=== PATIENT | female | born 1935 | race Caucasian/White ===

== ENCOUNTER 2017-08-12 11:25 | Inpatient (IN) ==
--- NOTE | 2017-08-12 12:02 | Emergency Department Note ---
Disposition Clinical Impression: COPD (chronic obstructive pulmonary disease), Hypoxia Disposition: Admitted As Inpatient Condition: Fair General Adult HPI - General Chief complaint: ED Shortness of Breath/Dyspnea Stated complaint: sob Time Seen by Provider: 08/12/17 11:53 Source: patient, family Limitations: no limitations - History of Present Illness Pain Scale: 0 - Related Data Home Medications Medication Instructions Recorded Confirmed ALPRAZolam [Xanax 0.5 MG Tablet] 0.5 mg PO TID 08/12/17 08/12/17 Albuterol Neb [Proventil Neb] 2.5 mg IH Q4HR 08/12/17 08/12/17 Albuterol Sulfate [Ventolin Hfa] 2 puff IH Q4H PRN 08/12/17 08/12/17 Beclomethasone Diprop 80mcg [QVAR 1 puff IH BID 08/12/17 08/12/17 80 mcg] Fluticasone Propionate [Flovent 1 puff IH DAILY 08/12/17 08/12/17 Hfa] HYDROcodone/Acet 5/325 mg [[place] 1 tab PO TID 08/12/17 08/12/17 5-325 mg] Ipratropium Neb [Atrovent Neb] 0.5 mg IH Q6HR 08/12/17 08/12/17 Levothyroxine [Synthroid] 100 mcg PO 0630 08/12/17 08/12/17 Omeprazole [PriLOSEC] 40 mg PO DAILY 08/12/17 08/12/17 Allergies Allergy/AdvReac Type Severity Reaction Status Date / Time Penicillins [PCN] Allergy Rash Verified 08/12/17 14:13 Sulfa (Sulfonamide Allergy Rash Verified 08/12/17 14:13 Antibiotics) CT Dye Allergy Rash Uncoded 08/12/17 14:13 Past Medical History - Past Medical History Medical history: Reports: COPD, other Surgical history: Reports: other (right upper lung lobe removal 2001) Psychiatric history: Reports: anxiety 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 history: Reports: non-contributory - Social History Smoking Status: Never smoker Smokeless Tobacco Status: No Alcohol use: Reports: occasionally Drug use: Reports: none Physical Exam - General Limitations: no limitations General appearance: alert, in no apparent distress Course Vital Signs Temperature 98.2 F 08/12/17 11:26 Pulse Rate 88 08/12/17 11:26 Respiratory Rate 20 06/04/18 11:26 Blood Pressure 159/95 08/12/17 11:26 O2 Sat by Pulse Oximetry 83 08/12/17 11:26 Temperature 98.4 F 08/12/17 19:45 Pulse Rate 81 08/12/17 19:45 Respiratory Rate 17 08/12/17 20:14 Blood Pressure 127/75 08/12/17 19:45 O2 Sat by Pulse Oximetry 91 08/12/17 20:14 Oxygen Delivery Oxygen Delivery Nasal Cannula Medical Decision Making - Lab Data Result diagrams: 08/12/17 11:29 Lab Results 08/12/17 08/12/17 08/12/17 Range/Units 11:29 11:29 12:11 D-Dimer (0-500) ng/mLFEU Sodium 137 (136-145) mEq/L Potassium 3.7 (3.5-5.1) mEq/L Chloride 98 (98-107) mEq/L Carbon Dioxide 30 H (23-29) mEq/L BUN 13 (8-23) mg/dL Creatinine 0.79 (0.60-1.20) mg/dL Est GFR ( Amer) > 60 (> 60) Est GFR (Non-Af Amer) > 60 (> 60) BUN/Creatinine Ratio 16 (6-26) Glucose 114 H (70-105) mg/dL Calculated Osmolality 285 (280-300) Calcium 9.6 (8.6-10.3) mg/dL Troponin I < 0.03 (< 0.04) ng/mL B-Natriuretic Peptide 46 (Less than 100) pg/mL Specimen Rejected Clotted 08/12/17 Range/Units 12:18 D-Dimer 697 H (0-500) ng/mLFEU Sodium (136-145) mEq/L Potassium (3.5-5.1) mEq/L Chloride (98-107) mEq/L Carbon Dioxide (23-29) mEq/L BUN (8-23) mg/dL Creatinine (0.60-1.20) mg/dL Est GFR ( Amer) (> 60) Est GFR (Non-Af Amer) (> 60) BUN/Creatinine Ratio (6-26) Glucose (70-105) mg/dL Calculated Osmolality (280-300) Calcium (8.6-10.3) mg/dL Troponin I (< 0.04) ng/mL B-Natriuretic Peptide (Less than 100) pg/mL Specimen Rejected Attestation Statement - Attestation Attestation: I examined this patient and my medical decision-making was reviewed with the Resident Physician. I agree with the documented findings, disposition and treatment plan as described except to the extent set forth below. [id number] time provided Patient with a known history of COPD presents with dyspnea. She appears in no acute distress on exam. She was hypoxic at triage which improved with supplemental oxygen application. The patient was evaluated in conjunction with the resident physician Dr. Wilson
[2017-08-12] MEDS ORDERED: Ipratropium/Albuterol Neb 3 ML IH ONE (12:15)
--- NOTE | 2017-08-12 12:18 | Emergency Department Note ---
Disposition Clinical Impression: Hypoxia COPD (chronic obstructive pulmonary disease) Qualifiers: COPD type: COPD with acute exacerbation Qualified Code(s): J44.1 - Chronic obstructive pulmonary disease with (acute) exacerbation Disposition: Admitted As Inpatient Condition: Fair Referrals: Phil Shelton MD [Primary Care Provider] - Forms: ED Satisfaction Letter Time of Disposition: 14:50 General Adult HPI - General Chief complaint: ED Shortness of Breath/Dyspnea Stated complaint: sob Time Seen by Provider: 08/12/17 11:53 Source: patient, family Mode of arrival: ambulatory Limitations: no limitations Nursing Notes Reviewed: Yes Vital Signs Reviewed: Yes - History of Present Illness HPI Narrative: Patient is an 82-year-old female with a past medical history of lung cancer requiring a right upper lobectomy, COPD requiring 2 L of nasal cannula oxygen at night presenting to the emergency department for the evaluation of exertional dyspnea. The patient states that her symptoms started over the course of the past 3 days. States they appear to be worsening to the point where she has difficulty walking from her house to the car. She states that her pulse ox is also been in the 80s which is not normal for her. The patient states that she was seen at an urgent care 2 days ago and had a chest x-ray and was diagnosed with COPD exacerbation and started on Levaquin and breathing treatments. Patient states that since that time that she does not feel that she is improving. She denies any fevers, productive cough, chest pain, back pain, abdominal pain, nausea, vomiting, or lower extremity swelling. Pain Scale: 0 - Related Data Home Medications Medication Instructions Recorded Confirmed ALPRAZolam [Xanax 0.5 MG Tablet] 0.5 mg PO TID 08/12/17 08/12/17 Albuterol Neb [Proventil Neb] 2.5 mg IH Q4HR 08/12/17 08/12/17 Albuterol Sulfate [Ventolin Hfa] 2 puff IH Q4H PRN 08/12/17 08/12/17 Beclomethasone Diprop 80mcg [QVAR 1 puff IH BID 08/12/17 08/12/17 80 mcg] Fluticasone Propionate [Flovent 1 puff IH DAILY 08/12/17 08/12/17 Hfa] HYDROcodone/Acet 5/325 mg [[place] 1 tab PO TID 08/12/17 08/12/17 5-325 mg] Ipratropium Neb [Atrovent Neb] 0.5 mg IH Q6HR 08/12/17 08/12/17 Levothyroxine [Synthroid] 100 mcg PO 0630 08/12/17 08/12/17 Omeprazole [PriLOSEC] 40 mg PO DAILY 08/12/17 08/12/17 Allergies Allergy/AdvReac Type Severity Reaction Status Date / Time Penicillins [PCN] Allergy Rash Verified 08/12/17 14:13 Sulfa (Sulfonamide Allergy Rash Verified 08/12/17 14:13 Antibiotics) CT Dye Allergy Rash Uncoded 08/12/17 14:13 All systems ED: reviewed and negative except as stated. Review of Systems: As Per HPI Constitutional: Denies: fever, chills Eyes: Denies: eye discharge ENT ED: Reports: congestion Cardiovascular: Reports: dyspnea on exertion. Denies: chest pain, palpitations , orthopnea, edema, syncope Respiratory: Reports: cough, dyspnea, wheezes, sputum production. Denies: hemoptysis Gastrointestinal: Denies: abdominal pain, nausea, vomiting, diarrhea, constipation Musculoskeletal: Denies: back pain Past Medical History - Past Medical History Attestation: Yes The following information was validated with the patient. Medical history: Reports: COPD, other Surgical history: Reports: other (right upper lung lobe removal 2001) Psychiatric history: Reports: anxiety DIRECTOR OF CATH LAB history: Reports: non-contributory - Social History Smoking Status: Never smoker Smokeless Tobacco Status: No Alcohol use: Reports: occasionally Drug use: Reports: none Physical Exam Vital Signs: Patient's vital signs are within normal limits except her oxygen saturation which was in the low 80 on arrival she was placed on 2 L nasal cannula and this improved to 96%. CONSTITUTIONAL: Alert and oriented X3, well-nourished, well appearing, in no apparent distress. Sitting up in bed and speaks in full sentences. HEAD: Normocephalic; atraumatic. EYES: PERRL, no scleral icterus. NOSE: The nose is normal in appearance without rhinorrhea RESP: Normal chest excursion with respiration; patient has good air movement, however she does have mild inspiratory and expiratory wheezing bilaterally. No focal rales. CARD: Regular rhythm, without murmurs, rub or gallop ABD: Non-distended; non-tender, soft,without rigidity, rebound or guarding SKIN: Normal for age and race; warm and dry; no apparent lesions EXT: No lower extremity swelling bilaterally. 2+ pulses in all extremities. No calf tenderness. - General Limitations: no limitations General appearance: alert, in no apparent distress Course Course Narrative: Patient is an 82-year-old female presenting for the main complaint of exertional dyspnea. Her physical exam was remarkable for hypoxia requiring nasal cannula oxygen as well as inspiratory and expiratory wheezing bilaterally. The plan at this time is to treat the patient with 1 order of dual nebs. She is already receiving steroids by mouth outpatient and Levaquin. The patient we worked up for cause of her exertional dyspnea differential diagnosis including but not limited to PE, [place], CHF, or pneumonia. 13:37: Patient states she does not notice much improvement after breathing treatment. I discussed with her that at this time her chest x-ray is negative for pneumonia. Her EKG is normal and troponin is negative. We are waiting on her CBC to return. Plan at this time is to admit the patient for hypoxia. Patient states that she has not had any cardiac testing done in the last 2-3 years. States she has never had an echocardiogram done. 14:49: Discussed plan to admit the patient for hypoxia most likely secondary to COPD. Discussed with Dr. Saul. Agrees to accept patient. Vital Signs Temperature 98.2 F 08/12/17 11:26 Pulse Rate 88 08/12/17 11:26 Respiratory Rate 20 08/12/17 11:26 Blood Pressure 159/95 08/12/17 11:26 O2 Sat by Pulse Oximetry 83 08/12/17 11:26 Temperature 98.2 F 08/12/17 11:26 Pulse Rate 76 08/12/17 12:47 Respiratory Rate 22 08/12/17 12:47 Blood Pressure 138/81 08/12/17 12:47 O2 Sat by Pulse Oximetry 94 08/12/17 12:47 Oxygen Delivery Oxygen Delivery Nasal Cannula Medical Decision Making - Medical Records Medical records reviewed: Yes I reviewed the patient's medical records. - Lab Data Lab results reviewed: Yes I reviewed the patient's lab results. Result diagrams: 08/12/17 11:29 Lab Results 08/12/17 08/12/17 08/12/17 Range/Units 11:29 11:29 12:11 D-Dimer (0-500) ng/mLFEU Sodium 137 (136-145) mEq/L Potassium 3.7 (3.5-5.1) mEq/L Chloride 98 (98-107) mEq/L Carbon Dioxide 30 H (23-29) mEq/L BUN 13 (8-23) mg/dL Creatinine 0.79 (0.60-1.20) mg/dL Est GFR ( Amer) > 60 (> 60) Est GFR (Non-Af Amer) > 60 (> 60) BUN/Creatinine Ratio 16 (6-26) Glucose 114 H (70-105) mg/dL Calculated Osmolality 285 (280-300) Calcium 9.6 (8.6-10.3) mg/dL Troponin I < 0.03 (< 0.04) ng/mL B-Natriuretic Peptide 46 (Less than 100) pg/mL Specimen Rejected Clotted 08/12/17 Range/Units 12:18 D-Dimer 697 H (0-500) ng/mLFEU Sodium (136-145) mEq/L Potassium (3.5-5.1) mEq/L Chloride (98-107) mEq/L Carbon Dioxide (23-29) mEq/L BUN (8-23) mg/dL Creatinine (0.60-1.20) mg/dL Est GFR ( Amer) (> 60) Est GFR (Non-Af Amer) (> 60) BUN/Creatinine Ratio (6-26) Glucose (70-105) mg/dL Calculated Osmolality (280-300) Calcium (8.6-10.3) mg/dL Troponin I (< 0.04) ng/mL B-Natriuretic Peptide (Less than 100) pg/mL Specimen Rejected - Radiology Data Radiology results reviewed: Yes I reviewed the patient's radiology results. Chest X-Ray 08/12/17 12:15 IMPRESSION: 1. No acute cardiopulmonary disease. D/ / 08/12/2017 12:51:02 Mindy Ward MD / miguel Interpreting Provider: Mindy Ward MD - EKG Data EKG #1 EKG attestation: Yes I reviewed and interpreted this EKG. EKG results narrative: Patient's EKG done 11:47 shows almost sinus rhythm at a rate of 75 bpm. Normal access. Normal intervals. No signs of ST elevation, ST depression or new Q waves. This is an unchanged EKG when compared to the EKG done on 09/04/2016.
[2017-08-12 13:07] LABS: BUN/Creatinine Ratio 16 (6-26); Blood Urea Nitrogen 13 mg/dL (8-23); Calcium 9.6 mg/dL (8.6-10.3); Carbon Dioxide 30 mEq/L (23-29); Chloride 98 mEq/L (98-107); Glucose 114 mg/dL (70-105); Osmolality,Calculated 285 (280-300); Potassium 3.7 mEq/L (3.5-5.1); Sodium 137 mEq/L (136-145); Troponin I < 0.03 ng/mL (< 0.04); eGFR For African Americans > 60 (> 60); eGFR For Non-African Americans > 60 (> 60)
[2017-08-12] MEDS ORDERED: *HR* HYDROcodone/Acet 5/325 mg TABLET PO PRN (16:03)
[2017-08-12] MEDS ORDERED: Naloxone 0.4 MG/ML INJ IVP PRN (16:03)
[2017-08-12] MEDS ORDERED: Ipratropium/Albuterol Neb 3 ML IH PRN (16:05)
--- NOTE | 2017-08-12 16:07 | Internal Med History&Physical ---
Date of Encounter: 08/12/17 Time of Encounter: 16:02 Internal Medicine - H&P: HPI Chief complaint: Shortness of breath History of present illness: Ms. Diaz is a 82 year old female history of lung cancer status post right upper lobectomy, COPD on 2 L nocturnal oxygen presents with acute COPD exacerbation. Patient has been experiencing one-week history of progressive shortness of breath worse on exertion, improved with rest. Shortness of breath has progressed to the extent that she is unable to walk a few steps up the stairs. She has developed a rattling productive cough. Cough is productive of yellow sputum. She has been coughing so much that her ribs bilaterally have been hurting. She has a history of smoking but quit in 2001. She was recently seen in urgent care and was prescribed by mouth prednisone and antibiotics which she has not complete. EKG personally reviewed with rate 75, normal sinus rhythm FINDINGS: Frontal and lateral view of the chest demonstrates no lines or tubes. Stable cardiomediastinal silhouette. Evidence of volume loss of the right hemithorax is identified. Opacification of the right apex is seen. Chronic reticular opacities are not significantly changed from the prior study. No new dense consolidation or pleural effusion. Emphysema. No acute osseous abnormality. XR/XR chest 2V IMPRESSION: 1. No acute cardiopulmonary disease. Past Med Surg Social Fam HX - Past Medical History Medical history: COPD, other Additional medical history: History of Lung cancer Psychiatric history: anxiety - Past Surgical History Surgical History: other (right upper lung lobe removal 2001) Additional surgical history: lung cancer - Social History Smoking Status: Never smoker Smokeless Tobacco Status: No Alcohol use: occasionally Drug use: none Internal Medicine - H&P: Meds ALPRAZolam [Xanax 0.5 MG Tablet] 0.5 mg PO TID 08/12/17 [History] Albuterol Neb [Proventil Neb] 2.5 mg IH Q4HR 08/12/17 [History] Albuterol Sulfate [Ventolin Hfa] 2 puff IH Q4H PRN 08/12/17 [History] Beclomethasone Diprop 80mcg [QVAR 80 mcg] 1 puff IH BID 08/12/17 [History] Fluticasone Propionate [Flovent Hfa] 1 puff IH DAILY 08/12/17 [History] HYDROcodone/Acet 5/325 mg [[place] 5-325 mg] 1 tab PO TID 08/12/17 [History] Ipratropium Neb [Atrovent Neb] 0.5 mg IH Q6HR 08/12/17 [History] Levothyroxine [Synthroid] 100 mcg PO 0630 08/12/17 [History] Omeprazole [PriLOSEC] 40 mg PO DAILY 08/12/17 [History] 3 Allergy/AdvReac Type Severity Reaction Status Date / Time Penicillins [PCN] Allergy Rash Verified 08/12/17 14:13 Sulfa (Sulfonamide Allergy Rash Verified 08/12/17 14:13 Antibiotics) CT Dye Allergy Rash Uncoded 08/12/17 14:13 All Systems PM: A 10-system review of systems was performed and is negative for pertinent findings except as documented above in the HPI. Review of systems: General - AAO x 3 Psych - Appropriate affect/speech. No agitation Eyes - SHU. Eye lids intact. No scleral icterus Neuro - No gross peripheral or central neuro deficits on inspection Heart - Sinus. RRR. S1 and S2 present. No added HS/murmurs appreciated. No elevated JVD appreciated. Lung - Adequate air entry b/l, diffuse wheezes and rhonchi is appreciated GI - Soft, non-tender. No hepatosplenomegaly/ascites. BS+ - No CVA/suprapubic tenderness or palpable bladder distension Skin - Intact. No rash/petechiae/ecchymosis. Warm extremities - Constitutional Vitals: Temp Pulse Resp BP Pulse Ox 98.4 F 73 16 163/91 89 08/12/17 15:58 08/12/17 15:58 08/12/17 15:58 08/12/17 15:58 08/12/17 15:58 Internal Med - H&P Results - Labs CBC & Chem 7: 08/12/17 11:29 - Assessment and plan (1) Acute exacerbation of chronic obstructive pulmonary disease (COPD) Current Visit: No Status: Acute Assessment and plan: IV levaquin, duoneb, IV steroids (2) Hypothyroid Current Visit: Yes Status: Acute Assessment and plan: continue med Qualifiers: Hypothyroidism type: acquired Qualified Code(s): E03.9 - Hypothyroidism, unspecified (3) Lung cancer Current Visit: Yes Status: Acute Assessment and plan: in remission. Follow up outpatient surveillance Qualifiers: Laterality: right Lung location: upper lobe of lung Qualified Code(s): C34.11 - Malignant neoplasm of upper lobe, right bronchus or lung - Time Spent With Patient Total time spent is greater than 50% in coordination of care (as documented) at patient's floor/unit and/or counseling patient:
--- NOTE | 2017-08-12 17:06 | Electrocardiograph Report ---
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
[2017-08-12] MEDS: Levofloxacin 500 MG/100 ML 500 MG/100 ML BAG IVPB SCH (18:36)
[2017-08-12] MEDS: MethylPREDNISolone 40 MG/ML VIAL IVP SCH (18:36)
[2017-08-12] MEDS: Ipratropium/Albuterol Neb 3 ML IH SCH ×2 (18:54→23:26)
[2017-08-12] MEDS: ALPRAZolam 0.5 MG TABLET PO SCH (19:49)
[2017-08-13] MEDS: Ipratropium/Albuterol Neb 3 ML IH SCH ×4 (03:41→22:32)
[2017-08-13] MEDS: *HR* Enoxaparin 30 MG/0.3 ML SYRINGE SQ SCH (05:47)
[2017-08-13] MEDS: MethylPREDNISolone 40 MG/ML VIAL IVP SCH ×4 (05:47→17:49)
[2017-08-13 08:46] LABS: BUN/Creatinine Ratio 15 (6-26); Blood Urea Nitrogen 10 mg/dL (8-23); Calcium 9.7 mg/dL (8.6-10.3); Carbon Dioxide 29 mEq/L (23-29); Chloride 99 mEq/L (98-107); Glucose 146 mg/dL (70-105); Osmolality,Calculated 290 (280-300); Potassium 3.7 mEq/L (3.5-5.1); Sodium 139 mEq/L (136-145); eGFR For African Americans > 60 (> 60); eGFR For Non-African Americans > 60 (> 60)
[2017-08-13] MEDS: Levofloxacin 500 MG/100 ML 500 MG/100 ML BAG IVPB SCH (09:07)
[2017-08-13] MEDS: ALPRAZolam 0.5 MG TABLET PO SCH ×2 (09:07→16:03)
--- NOTE | 2017-08-13 19:11 | Internal Med Progress Note ---
Date of Encounter: 08/13/17 Time of Encounter: 10:00 - Assessment and plan (1) Acute exacerbation of chronic obstructive pulmonary disease (COPD) Current Visit: Yes Status: Acute Assessment and plan: Acute exacerbation. Patient with increased demand for oxygen in the last 3 days. She reports nonproductive hacking cough. She states that despite guaifenesin, she is still not bringing anything up with her cough. Continue O2 as needed to maintain sats greater than 92%. Continue guaifenesin, duo nebs, Levaquin, Solu-Medrol 40 mg IV BID. Chest X-Ray 08/12/17 12:15 IMPRESSION: 1. No acute cardiopulmonary disease. D/ / 08/12/2017 12:51:02 Mindy Ward MD / miguel Interpreting Provider: Mindy Ward MD (2) Hypothyroid Current Visit: Yes Status: Acute Assessment and plan: Chronic. Continue home medications. Qualifiers: Hypothyroidism type: acquired Qualified Code(s): E03.9 - Hypothyroidism, unspecified (3) Lung cancer Current Visit: Yes Status: Acute Assessment and plan: In remission since 2001. Patient to follow oncology. Qualifiers: Laterality: right Lung location: upper lobe of lung Qualified Code(s): C34.11 - Malignant neoplasm of upper lobe, right bronchus or lung (4) Elevated d-dimer Current Visit: Yes Status: Acute Assessment and plan: Elevated d-dimer on admission. Patient is allergic to CT dye. VQ scan ordered and pending. See plan above. (5) Acute and chronic respiratory failure Current Visit: Yes Status: Acute Assessment and plan: Patient normally wears 2 L of oxygen at nighttime. Over the last several days she has required oxygen throughout the day. Increased demand for the last 3 days. Plan as above. Qualifiers: Respiratory failure complication: unspecified whether with hypoxia or hypercapnia Qualified Code(s): J96.20 - Acute and chronic respiratory failure , unspecified whether with hypoxia or hypercapnia - Time Spent With Patient Total time spent is greater than 50% in coordination of care (as documented) at patient's floor/unit and/or counseling patient: less than 15 minutes - Subjective Interval history: Patient was seen and evaluated at 10 AM. She reports increasing shortness of breath as well as increased demand for oxygen over the last 3 days. Normally wears 2 L at home at night. She reports that she was wearing a more frequently throughout the day. She now reports a hacking, nonproductive cough. Patient states that she normally takes Xanax 0.5 mg 2 tablets at bedtime and states that she did not sleep well last night, will put in order to not disturb patient from [id number]. Patient does at times appear to have some conversational dyspnea,, no chest pain no abdominal pain, no nausea or vomiting. Patient denies peripheral edema headache or dizziness. - Constitutional Vitals: Temp Pulse Resp BP Pulse Ox 97.9 F 83 16 137/79 89 08/13/17 14:59 08/13/17 14:59 08/13/17 15:44 08/13/17 14:59 08/13/17 15:44 General appearance: Present: cooperative, mild distress, pleasant, answers questions appropriately - Head Head exam: Present: atraumatic, normal inspection, normocephalic - Eye Eye exam: Present: normal appearance, conjuntiva pink, sclera anicteric - Neck Neck exam general surgery: Present: supple, trachea midline. Absent: lymphadenopathy - Respiratory Respiratory exam: Present: decreased breath sounds, CTAB. Absent: accessory muscle use, chest wall tenderness, rales, rhonchi, wheezes - Cardiovascular Cardiovascular exam: Present: RRR, +S1, +S2. Absent: diastolic murmur, gallop, rubs, systolic murmur - GI/Abdominal GI/Abdominal exam: Present: normal bowel sounds, soft. Absent: distended, hepatomegaly, tenderness - Extremities Exam Extremities exam: Present: normal inspection, warm, radial pulses palpable and symmetrical. Absent: calf tenderness, cyanotic, pedal edema, tenderness - Neurological Exam Neurological exam: Present: alert, oriented X3, no focal deficits. Absent: facial droop, speech deficit - Skin Skin exam: Present: dry, intact, normal color, warm. Absent: rash Internal Medicine: Result - Labs CBC & Chem 7: 08/13/17 07:12 Labs: BMP 08/13/17 07:12 Sodium 139 Potassium 3.7 Chloride 99 Carbon Dioxide 29 BUN 10 Creatinine 0.68 Glucose 146 H Calcium 9.7 - ABG Interpretation ABG results: PT/INR, D-dimer D-Dimer 697 ng/mLFEU (0-500) H 08/12/17 12:18 Consult Discharge Plan - Plan Referrals: Phil Shelton MD [Primary Care Provider] -
[2017-08-13] MEDS ORDERED: ALPRAZolam 1 MG TABLET PO SCH (21:00)
[2017-08-13] MEDS ORDERED: Melatonin 3 MG TABLET PO ONE (23:42)
[2017-08-14 04:08] LABS: Basophils % 0.2 %; Hematocrit 39.7 % (35.3-44.9); Hemoglobin 13.1 g/dL (11.5-15.4); Immature Granulocytes % 0.4 % (0-4); Lymphocytes # 1.4 K/mcL (0.6-4.6); Lymphocytes % 13.1 %; Mean Corpuscular Hemoglobin 31.3 pg (28.0-33.3); Mean Corpuscular Volume 94.7 fL (83.0-100.0); Mean Platelet Volume 12.1 fL (9.4-12.4); Monocytes # 0.9 K/mcL (0.0-1.3); Monocytes % 7.9 %; Platelet Count 178 K/mcL (140-400); Red Blood Count 4.19 M/mcL (3.82-4.97); Red Cell Distribution Width 13.6 % (11.5-14.5); Segmented Neutrophils % 78.4 %
[2017-08-14] MEDS: Ipratropium/Albuterol Neb 3 ML IH SCH ×3 (04:10→16:09)
[2017-08-14 04:13] LABS: Neutrophils # 8.6 K/mcL (1.6-8.9)
[2017-08-14 04:19] LABS: BUN/Creatinine Ratio 21 (6-26); Blood Urea Nitrogen 13 mg/dL (8-23); Calcium 9.2 mg/dL (8.6-10.3); Carbon Dioxide 31 mEq/L (23-29); Chloride 100 mEq/L (98-107); Glucose 170 mg/dL (70-105); Osmolality,Calculated 288 (280-300); Potassium 3.8 mEq/L (3.5-5.1); Sodium 137 mEq/L (136-145); eGFR For African Americans > 60 (> 60); eGFR For Non-African Americans > 60 (> 60)
[2017-08-14 04:40] LABS: Platelet Estimate Normal (Normal); Reactive Lymphocytes Present (Not Present)
[2017-08-14] MEDS: *HR* Enoxaparin 30 MG/0.3 ML SYRINGE SQ SCH (06:05)
[2017-08-14] MEDS: MethylPREDNISolone 40 MG/ML VIAL IVP SCH ×2 (06:05→18:37)
[2017-08-14] MEDS ORDERED: ALPRAZolam 0.5 MG TABLET PO SCH (09:00)
[2017-08-14] MEDS: Levofloxacin 500 MG/100 ML 500 MG/100 ML BAG IVPB SCH (09:11)
[2017-08-14 16:10] VITALS: BP 163/89
--- NOTE | 2017-08-14 16:49 | Discharge Summary ---
- NOTES TO OUTPATIENT PROVIDER Notes to Outpatient Provider: She was admitted and treated for acute exacerbation of COPD. Patient had elevated d-dimer, VQ scan showed low probability for PE. Patient has returned to baseline. She will be treated with Levaquin by mouth as well as prednisone taper, Mucinex. Date of Encounter: 08/14/17 Time of Encounter: 14:20 - Discharge Diagnosis (1) Acute exacerbation of chronic obstructive pulmonary disease (COPD) Priority: Primary Status: Acute Assessment and Plan: Acute exacerbation. Patient is improving and states that she is feeling better and ready to go home. She has returned to her baseline O2 use. Today she reports productive cough. Sputum culture is ordered and pending. Continue O2 as needed to maintain sats greater than 92%. Continue guaifenesin, duo nebs, Levaquin, prednisone taper. Chest X-Ray 08/12/17 12:15 IMPRESSION: 1. No acute cardiopulmonary disease. D/ / 08/12/2017 12:51:02 Mindy Ward MD / miguel Interpreting Provider: Mindy Ward MD (2) Hypothyroid Priority: Secondary Status: Acute Assessment and Plan: Chronic. Levothyroxine 100 g daily. Qualifiers: Hypothyroidism type: acquired Qualified Code(s): E03.9 - Hypothyroidism, unspecified (3) Lung cancer Priority: Secondary Status: Chronic Assessment and Plan: In remission since 2001. Continue to follow with oncology. Qualifiers: Laterality: right Lung location: upper lobe of lung Qualified Code(s): C34.11 - Malignant neoplasm of upper lobe, right bronchus or lung (4) Elevated d-dimer Priority: Secondary Status: Acute Assessment and Plan: Elevated d-dimer on admission. Patient is allergic to CT dye. VQ scan show low probability for PE. (5) Acute and chronic respiratory failure Priority: Secondary Status: Acute Assessment and Plan: Patient normally wears 2 L of oxygen at nighttime. Over the last several days she has required oxygen throughout the day. I Pt has returned to her baseline use. Qualifiers: Respiratory failure complication: unspecified whether with hypoxia or hypercapnia Qualified Code(s): J96.20 - Acute and chronic respiratory failure , unspecified whether with hypoxia or hypercapnia Hospital course: Ms. Diaz is a 82 year old female with past medical history of COPD, lung cancer, chronic respiratory failure. Patient was admitted for acute exacerbation of COPD. She has been treated with duo nebs, oxygen, Lasix, guaifenesin, steroids. Prior to admission, patient was having increased oxygen demand over her baseline. Normally wears 2 L of O2 at home at night only, was needing 3 L throughout the day. Seems unremarkable. Lungs are clear and diminished throughout. Today she reports productive cough, sputum culture was ordered and pending. On admission, patient had elevated d-dimer. She is allergic to CT contrast to VQ scan was completed and showed low probability for PE. Patient has no leukocytosis, afebrile, no tachycardia, she is normotensive. Patient is going to be discharged with prescriptions for guaifenesin, Levaquin by mouth, and a prednisone taper. She is stable and appropriate for discharge. Discharge discussed with: patient - Time Spent with Patient Total time spent providing and/or coordinating discharge services: Less than 30 minutes - Discharge Medications Prescriptions: GuaiFENesin ER [Mucinex] 600 mg PO BID #28 tbbp.12hr Levofloxacin [Levaquin] 500 mg PO DAILY #5 tablet predniSONE [PredniSONE] 10 mg PO DAILY #31 tablet Home Medications: ALPRAZolam [Xanax 0.5 MG Tablet] 0.5 mg PO TID 08/12/17 [History] Albuterol Neb [Proventil Neb] 2.5 mg IH Q4HR 08/12/17 [History] Albuterol Sulfate [Ventolin Hfa] 2 puff IH Q4H PRN 08/12/17 [History] Beclomethasone Diprop 80mcg [QVAR 80 mcg] 1 puff IH BID 08/12/17 [History] Fluticasone Propionate [Flovent Hfa] 1 puff IH DAILY 08/12/17 [History] HYDROcodone/Acet 5/325 mg [[place] 5-325 mg] 1 tab PO TID 08/12/17 [History] Ipratropium Neb [Atrovent Neb] 0.5 mg IH Q6HR 08/12/17 [History] Levothyroxine [Synthroid] 100 mcg PO 0630 08/12/17 [History] Omeprazole [PriLOSEC] 40 mg PO DAILY 08/12/17 [History] GuaiFENesin ER [Mucinex] 600 mg PO BID #28 tbbp.12hr 08/14/17 [Rx] Levofloxacin [Levaquin] 500 mg PO DAILY #5 tablet 08/14/17 [Rx] predniSONE [PredniSONE] 10 mg PO DAILY #31 tablet 08/14/17 [Rx] Allergies/Adverse Reactions: 3 Allergy/AdvReac Type Severity Reaction Status Date / Time Penicillins [PCN] Allergy Rash Verified 08/12/17 14:13 Sulfa (Sulfonamide Allergy Rash Verified 08/12/17 14:13 Antibiotics) CT Dye Allergy Rash Uncoded 08/12/17 14:13 Date of admission: 08/12/17 18:48 Primary care physician: Phil Shelton MD Discharging clinician: Jordyn Marin Anticipated date of discharge: 08/14/17 - Constitutional Vitals: Temp Pulse Resp BP Pulse Ox 98.6 F 64 18 163/89 90 08/14/17 16:09 08/14/17 16:09 08/14/17 16:09 08/14/17 16:09 08/14/17 16:09 General appearance: Present: cooperative, A&O X 3, pleasant, no acute distress, answers questions appropriately - Head Head exam: Present: atraumatic, normal inspection, normocephalic - Eye Eye exam: Present: normal appearance, conjuntiva pink, sclera anicteric - Neck Neck exam general surgery: Present: supple, trachea midline. Absent: lymphadenopathy - Respiratory Respiratory exam: Present: decreased breath sounds, CTAB. Absent: accessory muscle use, chest wall tenderness, rales, respiratory distress, rhonchi, wheezes - Cardiovascular Cardiovascular exam: Present: RRR, +S1, +S2. Absent: diastolic murmur, gallop, rubs, systolic murmur - GI/Abdominal GI/Abdominal exam: Present: normal bowel sounds, soft. Absent: distended, hepatomegaly, tenderness - Extremities Exam Extremities exam: Present: normal capillary refill, normal inspection, warm, radial pulses palpable and symmetrical. Absent: calf tenderness, cyanotic, pedal edema, tenderness - Neurological Exam Neurological exam: Present: alert, oriented X3, no focal deficits. Absent: altered, facial droop, speech deficit - Skin Skin exam: Present: dry, intact, normal color, warm. Absent: rash - Patient Status Disposition: Home, Self-Care Condition: Good Functional capacity at discharge: independent ambulation Overall status at discharge: patient is progressing back to baseline - Discharge Instructions Instructions: Chronic Obstructive Pulmonary Disease (DC) Follow Up With: Phil Shelton MD [Primary Care Provider] - Additional Instructions: Follow-up appointments: If there is not an appointment listed below, please call your physician and schedule a follow-up appointment. If you have congestive heart failure and your symptoms return, make an appointment with your physician. Medication List: Carry an up to date list of medications you are taking at all time. We have given you an updated medication list including any new medications that you have been prescribed. Please provide that list to your primary provider Symptoms: If your condition changes or you experience any of the following symptoms, notify your physician immediately: Unusual or worsening pain, fever, persistent nausea and vomiting, bleeding, increase in swelling (especially in your legs), sudden weight gain, extreme dizziness, chest pain, increased drainage or redness from a wound or incision. Go to the emergency department if you experience a problem with breathing. Weights: If you have a history of swelling or shortness of breath, weigh yourself daily and notify your physician if you have a weight gain of two or more pounds in one day or 5 or more pounds in a week. If you experience any of the warning signs for stroke: Sudden numbness or weakness of the face, arm or leg; especially on one side of the body, sudden confusion, trouble speaking or understanding, sudden trouble seeing in one or both eyes, sudden trouble walking, dizziness, loss of balance or coordination, sudden sever headache with no cause; Call 911 or go to the emergency room. Stroke is a medical emergency. Some risk factors for stroke: Age, cigarette smoking, diabetes, excessive alcohol consumption, family history , high blood pressure, overweight, physical inactivity, prior stroke, heart attack, diagnosis of carotid artery stenosis or other artery disease. If you smoke, STOP: Smoking or tobacco use significantly increases your risk of heart and lung disease. Your chance of disease greatly increases if you continue to smoke. For more information, call the [employer] tobacco quit line for smoking cessation QUIT-NOW ( ) - Diet and Activity Activity: increase activity as tolerated, wear oxygen at night Diet: advance to your usual diet
== END 2017-08-14 19:35 | disposition home or self-care (01) | DRG 190 ==
LOC: EMEROO 11:25 → 3BNU 11:25
PROVIDERS: ADMIT Internal Medicine Hematology & Oncology; ATTEND Internal Medicine Hematology & Oncology

== ENCOUNTER 2018-10-30 09:18 | Observation (INO) ==
[2018-10-30] MEDS ORDERED: cefTRIAXone 1,000 MG in Water for inj. (sterile) 10 ML IVP ONE (09:50)
[2018-10-30] MEDS ORDERED: Azithromycin 500 MG in 0.9 % Sodium Chloride 250 ML IVPB ONE (09:50)
[2018-10-30] MEDS ORDERED: Ipratropium/Albuterol Neb 3 ML IH ONE (09:50)
[2018-10-30] MEDS ORDERED: methylPREDNISolone 125 MG/2 ML VIAL IVP ONE (09:50)
[2018-10-30 10:32] LABS: Basophils # 0.1 K/mcL (0.0-0.2); Basophils % 0.4 %; Eosinophils # 0.4 K/mcL (0.0-0.6); Eosinophils % 3.3 %; Hematocrit 39.3 % (35.3-44.9); Hemoglobin 12.9 g/dL (11.5-15.4); Immature Granulocytes % 0.5 % (0-4); Lymphocytes # 1.5 K/mcL (0.6-4.6); Lymphocytes % 11.8 %; Mean Corpuscular HGB Conc 32.8 g/dL (31.6-35.5); Mean Corpuscular Hemoglobin 32.3 pg (28.0-33.3); Mean Corpuscular Volume 98.3 fL (83.0-100.0); Mean Platelet Volume 11.2 fL (9.4-12.4); Monocytes # 1.8 K/mcL (0.0-1.3); Monocytes % 13.8 %; Neutrophils # 9.2 K/mcL (1.6-8.9); Platelet Count 232 K/mcL (140-400); Segmented Neutrophils % 70.2 %; White Blood Count 13.1 K/mcL (4.3-11.1)
[2018-10-30 10:55] LABS: BUN/Creatinine Ratio 23 (6-26); Blood Urea Nitrogen 15 mg/dL (8-23); Calcium 9.6 mg/dL (8.6-10.3); Carbon Dioxide 33 mEq/L (23-29); Chloride 98 mEq/L (98-107); Glucose 113 mg/dL (70-105); Osmolality,Calculated 290 (280-300); Potassium 3.8 mEq/L (3.5-5.1); Sodium 139 mEq/L (136-145); Troponin I < 0.03 ng/mL (< 0.04); eGFR For African Americans > 60 (> 60); eGFR For Non-African Americans > 60 (> 60)
[2018-10-30] MEDS ORDERED: Ibuprofen 600 MG TABLET PO ONE (10:57)
[2018-10-30] MEDS ORDERED: Isovue-370 500 ML BOTTLE IVP ONE (12:08)
[2018-10-30] MEDS ORDERED: *HR* Rivaroxaban 15 MG TABLET PO STA (14:23)
[2018-10-30] MEDS ORDERED: *HR* HYDROcodone/Acet 5/325 mg TABLET PO PRN ×2 (16:22→18:27)
[2018-10-30] MEDS ORDERED: *HR* Heparin 5,000 UNIT/ML VIAL IVP ONE (16:24)
[2018-10-30] MEDS ORDERED: *HR* Heparin 5,000 UNIT/ML VIAL IVP PRN (16:24)
[2018-10-30] MEDS ORDERED: Heparin 25,000 UNIT/250 ML D5W 25,000 UNIT/250 ML IV.SOLN IVC SCH (16:30)
[2018-10-30 18:08] LABS: INR 1.7; Prothrombin Time 19.3 Seconds (9.4-12.1)
[2018-10-30 18:11] LABS: Activated Partial Thrombo Time 37.6 Seconds (26.0-36.0)
[2018-10-30 18:17] LABS: Heparin anti-factor XA UFH > 2.00 IU/mL (0.30-0.70)
[2018-10-30] MEDS ORDERED: Naloxone 0.4 MG/ML INJ IVP PRN (18:26)
[2018-10-30] MEDS ORDERED: *HR* OxyCODONE Immed Rel 5 MG TABLET PO PRN (18:26)
[2018-10-30] MEDS ORDERED: Acetaminophen 325 MG TABLET PO PRN (18:26)
[2018-10-30] MEDS ORDERED: Ondansetron 4 MG/2 ML VIAL IVP PRN (18:26)
[2018-10-30] MEDS: Ipratropium Neb 0.5 MG NEBULIZER IH SCH ×2 (20:10→23:21)
[2018-10-30] MEDS: Albuterol 2.5 MG/3 ML NEBULIZER IH SCH ×2 (20:10→23:20)
[2018-10-30] MEDS: ALPRAZolam 0.5 MG TABLET PO SCH (22:16)
[2018-10-31] MEDS ORDERED: *HR* Heparin 5,000 UNIT/ML VIAL IVP PRN ×2
[2018-10-31 00:37] LABS: INR 1.3; Prothrombin Time 14.6 Seconds (9.4-12.1)
[2018-10-31 00:40] LABS: Activated Partial Thrombo Time 30.8 Seconds (26.0-36.0)
[2018-10-31] MEDS: Heparin 25,000 UNIT/250 ML D5W 25,000 UNIT/250 ML IV.SOLN IVC SCH ×2 (02:30→20:39)
[2018-10-31] MEDS ORDERED: Heparin 25,000 UNIT/250 ML D5W 25,000 UNIT/250 ML IV.SOLN IVC SCH (02:30)
[2018-10-31 04:22] LABS: Basophils % 0.1 %; Hematocrit 36.4 % (35.3-44.9); Hemoglobin 11.9 g/dL (11.5-15.4); Immature Granulocytes % 0.5 % (0-4); Lymphocytes # 1.3 K/mcL (0.6-4.6); Lymphocytes % 8.7 %; Mean Corpuscular HGB Conc 32.7 g/dL (31.6-35.5); Mean Corpuscular Hemoglobin 32.2 pg (28.0-33.3); Mean Corpuscular Volume 98.6 fL (83.0-100.0); Mean Platelet Volume 11.4 fL (9.4-12.4); Monocytes # 1.3 K/mcL (0.0-1.3); Monocytes % 8.7 %; Neutrophils # 12.3 K/mcL (1.6-8.9); Platelet Count 222 K/mcL (140-400); Red Blood Count 3.69 M/mcL (3.82-4.97); Red Cell Distribution Width 13.6 % (11.5-14.5)
[2018-10-31 04:29] LABS: INR 1.1
[2018-10-31 04:31] LABS: Activated Partial Thrombo Time 36.9 Seconds (26.0-36.0)
[2018-10-31] MEDS: Albuterol 2.5 MG/3 ML NEBULIZER IH SCH ×2 (04:31→07:21)
[2018-10-31] MEDS: Ipratropium Neb 0.5 MG NEBULIZER IH SCH ×2 (04:31→07:21)
[2018-10-31 04:40] LABS: BUN/Creatinine Ratio 21 (6-26); Blood Urea Nitrogen 15 mg/dL (8-23); Calcium 9.4 mg/dL (8.6-10.3); Carbon Dioxide 29 mEq/L (23-29); Chloride 102 mEq/L (98-107); Glucose 154 mg/dL (70-105); Magnesium 2.3 mg/dL (1.6-2.6); Osmolality,Calculated 288 (280-300); Sodium 137 mEq/L (136-145); eGFR For African Americans > 60 (> 60); eGFR For Non-African Americans > 60 (> 60)
[2018-10-31] MEDS: ALPRAZolam 0.5 MG TABLET PO SCH (07:46)
[2018-10-31] MEDS ORDERED: cefTRIAXone 1,000 MG in Water for inj. (sterile) 10 ML IVP SCH (09:00)
[2018-10-31] MEDS ORDERED: VILANTER IH SCH (09:00)
[2018-10-31] MEDS ORDERED: Azithromycin 500 MG in 0.9 % Sodium Chloride 250 ML IVPB SCH (09:00)
[2018-10-31] MEDS ORDERED: FLUTICASONE IH SCH (09:00)
[2018-10-31] MEDS ORDERED: UMECLIDIN IH SCH (09:00)
[2018-10-31] MEDS ORDERED: ALPRAZolam 0.5 MG TABLET PO PRN (09:45)
[2018-10-31] MEDS: PrednisoLONE Oral Soln 15 MG/5 ML UDC PO SCH (11:52)
[2018-10-31] MEDS: cefTRIAXone 1,000 MG in Water for inj. (sterile) 10 ML IVP SCH (11:52)
[2018-10-31] MEDS: Azithromycin 500 MG in 0.9 % Sodium Chloride 250 ML IVPB SCH (11:52)
[2018-10-31] MEDS: Budesonide/Formoterol 160/4.5 1 PUFF INH IH SCH ×2 (13:52→22:12)
[2018-10-31] MEDS: Ipratropium/Albuterol Neb 3 ML IH SCH ×2 (15:15→22:11)
[2018-10-31] MEDS: Apixaban 5 MG TABLET PO SCH (21:15)
[2018-11-01] MEDS: Ipratropium/Albuterol Neb 3 ML IH SCH ×2 (03:53→10:48)
[2018-11-01 06:18] LABS: Basophils % 0.3 %; Eosinophils # 0.2 K/mcL (0.0-0.6); Eosinophils % 1.9 %; Hematocrit 35.8 % (35.3-44.9); Hemoglobin 11.8 g/dL (11.5-15.4); Immature Granulocytes % 0.4 % (0-4); Lymphocytes % 17.3 %; Mean Corpuscular Hemoglobin 32.1 pg (28.0-33.3); Mean Corpuscular Volume 97.3 fL (83.0-100.0); Mean Platelet Volume 11.2 fL (9.4-12.4); Monocytes # 1.3 K/mcL (0.0-1.3); Neutrophils # 8.1 K/mcL (1.6-8.9); Platelet Count 250 K/mcL (140-400); Red Blood Count 3.68 M/mcL (3.82-4.97); Segmented Neutrophils % 69.1 %; White Blood Count 11.7 K/mcL (4.3-11.1)
[2018-11-01 06:39] LABS: BUN/Creatinine Ratio 19 (6-26); Blood Urea Nitrogen 13 mg/dL (8-23); Calcium 9.3 mg/dL (8.6-10.3); Carbon Dioxide 31 mEq/L (23-29); Chloride 102 mEq/L (98-107); Glucose 109 mg/dL (70-105); Osmolality,Calculated 293 (280-300); Potassium 3.6 mEq/L (3.5-5.1); Sodium 141 mEq/L (136-145); eGFR For African Americans > 60 (> 60); eGFR For Non-African Americans > 60 (> 60)
[2018-11-01 07:28] VITALS: BP 146/75
[2018-11-01] MEDS ORDERED: Multivit/Ca/Min/Fe/FA 1 TAB TABLET PO SCH (09:00)
[2018-11-01] MEDS ORDERED: Cholecalciferol (D-3) 1,000 UNIT (25MCG) TABLET PO SCH (09:00)
[2018-11-01] MEDS: Apixaban 5 MG TABLET PO SCH (09:39)
[2018-11-01] MEDS: PrednisoLONE Oral Soln 15 MG/5 ML UDC PO SCH (09:39)
[2018-11-01] MEDS: cefTRIAXone 1,000 MG in Water for inj. (sterile) 10 ML IVP SCH (09:39)
[2018-11-01] MEDS: Budesonide/Formoterol 160/4.5 1 PUFF INH IH SCH (10:48)
[2018-11-01] MEDS: Azithromycin 500 MG in 0.9 % Sodium Chloride 250 ML IVPB SCH (11:04)
== END 2018-11-01 12:20 | disposition home or self-care (01) ==
LOC: EMEROOARM 09:18 → 3ANU 09:18 → SUATTDRO 14:40 → 3ANU 16:38
PROVIDERS: ADMIT Internal Medicine Nephrology; ATTEND Internal Medicine